=== PATIENT | female | born 1975 | race Caucasian/White ===

== ENCOUNTER → 2023-09-15 12:17 | Outpatient (REF) | payer BC, SELFPAY | LOC: WDC 12:17 | PROVIDERS: ATTENDING PHYSICIAN Obstetrics & Gynecology; FAMILY PHYSICIAN Physician Assistant Medical | DX: Z12.31 Encounter for screening mammogram for malignant neoplasm of breast (principal) | CPT/HCPCS: 77063; 77067 ==

== ENCOUNTER → 2023-12-29 07:18 | Outpatient (REF) | payer BC, SELFPAY | LOC: EMG 07:18 | PROVIDERS: ATTENDING PHYSICIAN Orthopaedic Surgery Hand Surgery; FAMILY PHYSICIAN Physician Assistant Medical | DX: G56.03 Carpal tunnel syndrome, bilateral upper limbs (principal); R20.0 Anesthesia of skin | CPT/HCPCS: 95886; 95911 ==

== ENCOUNTER → 2024-01-28 13:51 | Outpatient (REF) | payer BC, SELFPAY | LOC: RCS 13:51 | PROVIDERS: ATTENDING PHYSICIAN Internal Medicine Cardiovascular Disease; FAMILY PHYSICIAN Physician Assistant Medical | DX: R60.0 Localized edema (principal) | CPT/HCPCS: 93306 ==

== ENCOUNTER → 2024-04-15 11:11 | Outpatient (REF) | payer BC, SELFPAY | LOC: RAD 11:11 | PROVIDERS: ATTENDING PHYSICIAN Family Medicine | DX: M79.652 Pain in left thigh (principal) | CPT/HCPCS: 93971 ==

== ENCOUNTER 2024-08-30 14:14 | Day surgery (SDC) | payer BC, SELFPAY ==
[2024-08-30] VITALS (13 sets, daily range): BP systolic 118–134; BP diastolic 73–91; BMI 24.2
--- NOTE | 2024-08-30 07:34 | ED.GENMED ---
History of Present Illness
General
Chief Complaint: Abdominal Pain
Source: patient
Exam Limitations: none
Time Seen by Provider: 08/30/24 07:21
Nursing documentation reviewed up to this point in time: agreed with
History of Present Illness
History of Present Illness:
48 yo female with no significant past medical history presents for abdominal pain. She states the pain started in the right lower quadrant 2 nights ago, is crampy and achy, has been getting worse and is now 7/10 and radiating across her entire
lower abdomen. Last normal BM was 2 days ago, had a small constipated BM today. Denies UTI symptoms. Denies fever or chills. Feels nauseous but has not vomited.
Past History
Past History
ED Past Medical History: None
ED Past Surgical History: None
Social History
Tobacco: Non-smoker
Alcohol: None
Drug: None
Personal:
Living: with family
Employment: Employed ( [employer])
Family History
Family History: Other (Noncontributory)
Review of Systems
Review of Systems
Allergies reviewed?: Yes
All Other Systems: ROS reviewed and negative except as documented in HPI and ROS
Constitutional: Denies fever or chills
Respiratory: Denies trouble breathing
Cardiac: Denies chest pain
ABD/GI: Reports abdominal pain and nausea; Denies vomiting or diarrhea
: Denies dysuria, frequency or difficulty voiding
Musculoskeletal: Reports no symptoms
Skin: Reports no symptoms
Neurological: Reports no symptoms
Phy Exam
Physical Exam
Physical Exam:
GENERAL: Mild distress due to pain. A&Ox3.
CONSTITUTIONAL: Afebrile.
EYES: clear, conjunctivae normal
ENMT: moist mucus membranes, Pharynx nl
RESPIRATORY: Regular respirations, nonlabored, lungs clear.
CARDIOVASCULAR: Regular rate and rhythm, no murmurs, no rubs.
GI: Soft, tender across lower abdomen, worse in RLQ, normal BS
MUSCULOSKELETAL: Moves with ease. Well perfused.
SKIN: Warm, dry, pink
PSYCH: Normal mood and affect. Well kept, interactive and appropriate
NEUROLOGIC: Awake, alert and oriented. No focal neurological deficits
Course
Orders/Labs/Results
Orders:
Orders
08/30/24 07:33
CT Abd/pel W Iv And Oral Contr Urgent
Comment:
Reason For Exam: pain across lower abd
Iohexol [Omnipaque] See Protocol PO NOW STA
08/30/24 07:34
Ketorolac [Toradol] 15 mg IV NOW STA
Ondansetron Injectable [Zofran] 4 mg IV NOW STA
08/30/24 08:30
Complete Blood Count/With Diff Urgent
Comprehensive Metabolic Panel Urgent
Lipase Urgent
Urinalysis Reflex To Culture Urgent
Date Specimen was Collected: 08/30/24
Time Specimen was Collected: 08:08
Urine Microscopic Reflex Cult Urgent
Urine Culture Urgent
DOC Source: U
Specimen Description:
Obtained by: Random
Date Specimen was Collected: 08/30/24
Time Specimen was Collected: 08:08
08/30/24 11:57
SURGICAL CONSULT Urgent
Consulting Provider: Werner Colunga
Was physician already notified: Yes
Reason for consult: acute appendicitis
08/30/24 12:02
Acetaminophen [Tylenol] 650 mg PO Q4HPRN PRN
HYDROmorphone [Dilaudid] 0.5 mg IV Q4HPRN PRN
Piperacillin/Tazo 3.375 Gram [Zosyn] 3.375 gram in 50 ml IV NOW
08/30/24 12:28
Fentanyl Citrate/Pf [Sublimaze] 100 mcg .ROUTE .STK-MED ONE
Lidocaine HCl/Pf [Xylocaine-Mpf 1% Vial] 50 mg .ROUTE .STK-MED ONE
Midazolam HCl [Versed] 2 mg .ROUTE .STK-MED ONE
Propofol [Diprivan] 20 ml .ROUTE .STK-MED
Rocuronium [place] [Rocuronium] 50 mg .ROUTE .STK-MED ONE
08/30/24 12:29
HYDROmorphone [Dilaudid] 0.25 mg IV PACU-Q5MPRN PRN
HYDROmorphone [Dilaudid] 0.5 mg IV PACU-Q5MPRN PRN
Meperidine [Demerol] 12.5 mg IV PACU-Q5MPRN PRN
Ondansetron Injectable [Zofran] 4 mg IV PACU-ONCEPRN PRN
Prochlorperazine [Compazine] 5 mg IV PACU-ONCEPRN PRN
Notify MD As Directed
Notify physician if: for SDS patients with known or suspected sleep obstructive sleep apnea, monitor in the
PACU.
Notify MD for any apneic/desaturation episodes
O2 Therapy [RESP] Urgent
Titrate/Wean O2 to maintain O2 sat greater than (%): 92
Special Instructions: -Provide supplemental oxygen to achieve O2 sat of 92% or greater.
-After 15 min, may wean O2 and discontinue if patient is able to maintain O2 sat of 92%
or greater during recovery period.
If patient is a discharge home, without oxygen therapy, notify anestheiologist if
unable to maintain O2 SAT of 92% or greater on room air for MD clearance.
08/30/24 12:30
Normosol (Mult Electrolytes) [Normosol-R/Plasmalyte-A] 1,000 ml IV PER PROTOCOL
08/30/24 12:39
Bupivacaine 0.25%Pf/Epinephrin [Sensorcaine-Epi 0.25%-0.0005] 30 ml .ROUTE .STK-MED ONE
08/30/24 12:58
Ketamine 5 ml .ROUTE .STK-MED
08/30/24 13:13
Dexamethasone Sod Phosphate [Decadron] 20 mg .ROUTE .STK-MED ONE
Diphenhydramine [Benadryl] 50 mg .ROUTE .STK-MED ONE
Famotidine [Pepcid] 20 mg .ROUTE .STK-MED ONE
Ondansetron Injectable [Zofran] 4 mg .ROUTE .STK-MED ONE
08/30/24 13:31
OR Pathology Routine
Pre-Operative Diagnosis: ACUTE APPENDICITIS
Operative Procedure: LAPAROSCOPIC APPENDECTOMY
Surgeon: WERNER COLUNGA
Circulating Nurse: MIRNA GUILLEN
Specimen Type: APPENDIX
08/30/24 13:41
Sugammadex Sodium [[place]] 200 mg .ROUTE .STK-MED ONE
08/30/24 14:15
Ondansetron Injectable [Zofran] 4 mg IV PACU-ONCEPRN PRN
08/30/24 14:28
Admit Patient As Directed
Co-Sign Provider:
Level of Care: Post Proc/Surg Recovery
Assign to:: Medical/Surgical
Physician / Group: Kimberlyn / CONCEPCIÓN
Diagnosis: Acute appendicitis
Reason for Overnight Stay: Standard of Care
Code Status As Directed
Resuscitation Status: Full Code
Activity As Directed
Activity Level: Ambulate
Intake/ Output As Directed
Frequency: Per unit guidelines
Vital Signs As Directed
Frequency: Per unit guidelines
PRN Pain Medication Management As Directed
May give lesser potent ordered pain med per pt: Yes
preference::
Protocol:: Medication orders for pain may be administered in a
manner that supports deferring to patient preference
when the pt is:
- Requesting an ordered lesser potent pain medication.
Least to most potent pain medications are defined
as: acetaminophen < NSAID < tramadol < opioids
(morphine, oxycodone, hydromorphone).
- Requesting a lesser dose of the same medication IF
ORDERED.
- Requesting a less intrusive route of administration
if both routes are prescribed by the provider (PO <
IV).
08/30/24 14:30
Normosol (Mult Electrolytes) [Normosol-R/Plasmalyte-A] 1,000 ml IV 100 mls/hr
08/30/24 14:32
Pneumatic Compression Sleeves As Directed
Type: Thigh high
Rx Incentive Spirometry [RESP] Routine
Frequency: q1h while awake
# of times per hour: 10
DX Deep Vein Thrombosis Video Routine
08/30/24 14:33
Ketorolac [Toradol] 10 mg IV Q6HPRN PRN
Ondansetron Injectable [Zofran] 4 mg IV Q6HPRN PRN
Oxycodone [Roxicodone] 5 mg PO Q4HPRN PRN
08/30/24 Dinner
Regular
At Your Request: Full Participation
HYDROmorphone [Dilaudid] 0.25 mg .ROUTE .STK-MED ONE
08/30/24 20:00
Piperacillin/Tazo 3.375 Gram [Zosyn] 3.375 gram in 50 ml IV Q6H
08/31/24 18:00
Enoxaparin Sodium [Lovenox] 40 mg SC QPM
Abnormal Lab Results
08/30/24
08:30
WBC 17.2 H 10^3/uL
(4.8-10.8)
RBC 4.06 L 10^6/uL
(4.20-5.40)
MCH 33.0 H pg
(27.0-31.0)
Abs Immat Gran (auto) 0.1 H 10^3/uL
(0-0.05)
Absolute Neuts (auto) 15.4 H 10^3/uL
(1.4-6.5)
Absolute Lymphs (auto) 0.8 L 10^3/uL
(1.2-3.4)
Absolute Monos (auto) 1.0 H 10^3/uL
(0.1-0.6)
Neutrophils % 89.4 H %
(42.2-75.2)
Lymphocytes % 4.4 L %
(20.5-51.1)
Glucose 109 H mg/dl
(70-99)
Leukocyte Esterase Rfl 1+ A
(Negative)
08/30/24 08:30
08/30/24 08:30
Vital Signs
Initial and Last Documented VS:
Initial Vital Signs
Temp Pulse Resp BP Pulse Ox
98.9 F 90 26 119/84 99
08/30/24 06:47 08/30/24 06:47 08/30/24 06:47 08/30/24 06:47 08/30/24 06:47
Last Documented Vital Signs
Temp Pulse Resp BP Pulse Ox
98.9 F 73 15 125/73 93
08/30/24 15:20 08/30/24 15:15 08/30/24 15:15 08/30/24 15:15 08/30/24 15:20
MDM/Problems Addressed
Differential Diagnosis Includes:
appendicitis, Constipation, diverticulitis, colitis, ovarian cyst
MDM/Problems Addressed:
48 yo female with no significant past medical history presents for abdominal pain. She states the pain started in the right lower quadrant 2 nights ago, is crampy and achy, has been getting worse and is now 7/10 and radiating across her entire
lower abdomen. Last normal BM was 2 days ago, had a small constipated BM today. Denies UTI symptoms. Denies fever or chills. Feels nauseous but has not vomited.
Afebrile, appears mildly uncomfortable
9:00 a.m.
Pt states she is getting pain relief after Toradol
CBC: WBC 17.2
CMP: Normal
U/A neg
2:00 PM:
Text message received from radiology Dr. Horton stating there is acute appendicitis
General surgeon Dr. Gutiérrez notified and into evaluate patient
Pt admitted to surgery service
*Critical Care Note
Total Time (30-74mins, 75-104mins- exclusive of procedures): Not Applicable
ED Attending Note
-
Portions of this chart may have been created with voice recognition software.� Occasional wrong word or��sound alike� substitutions may have occurred due to the inherent limitations of voice recognition software.
Discharge Plan
Departure
Patient Disposition: Admit
Date of Disposition: 08/30/24
Time of Disposition: 11:57
Admit to: Med/Surg
Presentation/result/management discussed w/ accepting /: Kimberlyn
Condition: Fair
Discharge Problem:
Acute appendicitis
Interventions
Interventions:
*General Assessment Last Done: 08/30/24 08:39
*Neglect/Abuse Screening Last Done: 08/30/24 06:47
ED- Fall Risk Assessment Last Done: 08/30/24 12:39
*ED COVID-19 Vaccine History Last Done: 08/30/24 08:39
*Nursing Disposition Last Done: 08/30/24 12:39
VN-Dlvqza-Lxnovdkfhh Assessment Last Done: 08/30/24 08:43
Discharge Date and Time
Discharge Date/Time: 08/30/24 12:38
[2024-08-30] MEDS: OMNIPAQUE 50 ML PO (08:20)
[2024-08-30] MEDS: ZOFRAN 4 MG IV (08:35)
[2024-08-30] MEDS: TORADOL 15 MG IV (08:35)
[2024-08-30 08:50] LABS: % Basophils 0.2 % (0-2); % Eosinophils 0.1 % (0-6); % Immature Granulocytes 0.4 % (0-0.5); % Lymphocytes 4.4 % (20.5-51.1); % Monocytes 5.5 % (1.7-9.3); % Neutrophils 89.4 % (42.2-75.2); Absolute Immature Granulocytes 0.1 10^3/uL (0-0.05); Absolute Lymphocytes 0.8 10^3/uL (1.2-3.4); Absolute Neutrophils 15.4 10^3/uL (1.4-6.5); Hematocrit 37.9 % (37.0-47.0); Hemoglobin 13.4 g/dL (12.0-16.0); Mean Corp Hgb Conc. 35.4 g/dL (33.0-37.0); Mean Corpuscular Volume 93.3 fL (81.0-99.0); Mean Platelet Volume 9.1 fL (7.4-10.4); Nucleated Red Blood Cells % 0 %; Platelet Count 260 10^3/uL (130-400); Red Blood Cell Count 4.06 10^6/uL (4.20-5.40); Red Cell Dist. Width 12.7 % (11.5-14.5); White Blood Cell Count 17.2 10^3/uL (4.8-10.8)
[2024-08-30 08:52] LABS: Urine Albumin Negative (Neg - Trace); Urine Bilirubin Negative (Negative); Urine Character Clear (Clear); Urine Color Straw; Urine Glucose Negative (Negative); Urine Ketone Negative (Negative); Urine Leukocyte 1+ (Negative); Urine Nitrite Negative (Negative); Urine Occult Blood Negative (Negative); Urine Specific Gravity 1.015 (<1.030); Urine Urobilinogen Negative (Neg - 1+)
[2024-08-30 08:56] LABS: Urine Red Blood Cell 0-2 /HPF (0-2); Urine Squamous Cell 0-2 /LPF (Few); Urine White Cell 0-2 /HPF (0-5)
[2024-08-30 09:14] LABS: ALT (SGPT) 22 U/L (0-35); AST (SGOT) 26 U/L (14-36); Albumin 4.6 g/dl (3.5-5.0); Alkaline Phosphatase 51 U/L (38-126); Blood Urea Nitrogen 7 mg/dl (7-17); Calcium 9.4 mg/dl (8.4-10.2); Carbon Dioxide 28 mmol/L (22-30); Chloride 101 mmol/L (98-107); Estimated Creatinine Clearance 90 ml/min; Glucose 109 mg/dl (70-99); Lipase 80 U/L (23-300); Potassium 3.7 mmol/L (3.5-5.1); Sodium 138 mmol/L (135-145); Total Bilirubin 0.9 mg/dl (0.2-1.3); Total Protein 6.9 g/dl (6.3-8.2); eGFR > 60.00
--- NOTE | 2024-08-30 12:06 | PHANOTE ---
med rec note- patient stated she going though HRT
--- NOTE | 2024-08-30 12:16 | W.SUR.PREOP ---
Pre-Operative Surgical Note
-
I have examined this patient prior to the performance of the scheduled procedure.
The patient's condition is unchanged from the time of the current History and
Physical and the patient is able to undergo the scheduled procedure.
--- NOTE | 2024-08-30 12:22 | HPS.HSE ---
Family Physician
-
Family Physician: Deborah Jett
Chief Complaint
-
Abdominal pain
History of Present Illness
Patient is a 48 y F with a PMH of anxiety and migraines who presents with 48 hours of RLQ abdominal pain. Symptoms began on Thursday evening. Abrupt and acute onset. Slow progression of discomfort since that time prompting presentation to the ED.
Associated constipation. Associated nausea, but no episodes of vomiting. No fevers or chills. No chronic GI issues. No personal or family history of IBD or colon cancer.
Medical History
Past Medical History
Past Medical History: Reports Psychiatric (Anxiety) and Other (Migraines)
Past Surgical History: Reports None
Social History
Tobacco: Non-smoker
Alcohol: Occasional
Drug: None
Personal:
Living: With Family
Family History
Family History: Not pertinent
Allergies / Home Medications
Allergies reflects when Allergies were last updated in [employer]
Home Medications with original date entered in [employer]
Allergy/Medication List:
NKDA
Review of Systems
-
A 12 point ROS was completed and negative except as noted: Yes
Physical Exam
Vital Signs
Vital Signs
Temp Pulse Resp BP Pulse Ox
98.9 F 90 26 131/88 100
08/30/24 06:47 08/30/24 06:47 08/30/24 06:47 08/30/24 11:33 08/30/24 11:45
Physical Exam
General: Well Developed, Well Nourished and No Apparent Distress
HEENT: NormoCephalic and Anicteric
Respiratory: Non Labored Respirations
Cardiac: Regular Rhythm
GI: Soft, Non Distended, Tender (RLQ/suprapubic region) and Other (Nonperitoneal)
Skin: Warm and Dry
Neuro: Nonfocal/grossly intact
Laboratory Results
-
08/30/24 08:30
08/30/24 08:30
Laboratory Results
Total Bilirubin 0.9 mg/dl (0.2-1.3) 08/30/24 08:30
AST 26 U/L (14-36) 08/30/24 08:30
ALT 22 U/L (0-35) 08/30/24 08:30
Alkaline Phosphatase 51 U/L (38-126) 08/30/24 08:30
Lipase 80 U/L (23-300) 08/30/24 08:30
Data Reviewed
-
CT Scan: Image Personally Visualized and interpreted and Report Reviewed by me
Lab Data: Labs Reviewed by me
Impression/Plan
-
IMPRESSION:
Patient is a 48 yo F p/w acute appendicitis
The natural history and pathophysiology of appendicitis was discussed. CT scan imaging as a relates to her appendix was reviewed. Options for management including medical management with antibiotics versus surgical management with appendectomy
were considered and discussed. Pros and cons of both approaches was discussed. Specifically, we discussed failure of medical management of future episodes of appendicitis versus surgical risks. Patient would like to proceed with appendectomy.
Plan for a laparoscopic appendectomy. The procedure itself, as well as the risks, benefits, and alternatives was discussed. Specifically, we discussed the risks of bleeding, infection, injury to surrounding structures (bowel, bladder), staple line
leak, need for open procedure. Typical postprocedure recovery including pain management and the need for 2 weeks no heavy lifting or strenuous activities was discussed. All questions answered. Consent signed.
PLAN:
-- Laparoscopic appendectomy
-- Pain control: Tylenol, IV Dilaudid PRN
-- Abx: Zosyn
[2024-08-30] MEDS: ZOSYN 50 IV ×2 (12:31→20:16)
[2024-08-30] MEDS: NORMOSOL-R/PLASMALYTE-A 1000 IV (14:30)
--- NOTE | 2024-08-30 14:41 | W.IMMPOSTOP ---
Surgical Immed Post Op Note
-
Primary Surgeon: Kimberlyn
Assisting Surgeon: None
Pre-op Diagnosis: Acute appendicitis
Post-op Diagnosis: Acute appendicitis
Procedure Performed: Laparoscopic appendectomy
Anesthesia Type: General
Specimen / Cultures:
1. Appendix
Estimated Blood Loss: 3 cc
Complications: None
Operative Findings:
1. Acute severe inflammation, appendix curled and adherent to TI and cecum
2. Localized perforation and spillage drained and immediately controlled
3. Mesentery take with [employer], base with mendez load stapler
Plan:
-- Abx: Zosyn/Augmentin for 7 days post-op
[2024-08-30] MEDS: DILAUDID 0.25 MG IV (15:01)
[2024-08-30] MEDS: TORADOL 10 MG IV (17:25)
--- NOTE | 2024-08-30 18:12 | PTCARENOTE ---
patient presents to [facility] rm 224 at 1530. Alert, orientated x 3. IV Infusing without difficulty into left antecubital, placed on a pump at this time. Pt assisted to BR, voided a large amt. Lungs clear however pt have a non productive cough.
Encourage use of incentive spirometry and well as instructed on coughing and deep breathing. 4 small incisions noted on abdoman with no drainage noted. Abd nondistended and soft, bowel sounds noted in all 4 quadrants. Discussed advancement of
diet.
[2024-08-30] MEDS: ROXICODONE 5 MG PO (20:57)
[2024-08-31 00:14] VITALS: BP 92/52
[2024-08-31] MEDS: ROXICODONE 5 MG PO (02:12)
[2024-08-31] MEDS: ZOSYN 50 IV ×2 (02:12→08:29)
[2024-08-31 04:34] VITALS: BP 98/54
[2024-08-31 07:37] VITALS: BP 108/68
[2024-08-31 07:43] LABS: Hematocrit 35.5 % (37.0-47.0); Hemoglobin 12.1 g/dL (12.0-16.0); Mean Corp Hgb Conc. 34.1 g/dL (33.0-37.0); Mean Corpuscular Hgb 32.7 pg (27.0-31.0); Mean Corpuscular Volume 95.9 fL (81.0-99.0); Mean Platelet Volume 8.9 fL (7.4-10.4); Platelet Count 230 10^3/uL (130-400); Red Cell Dist. Width 12.9 % (11.5-14.5); White Blood Cell Count 16.4 10^3/uL (4.8-10.8)
[2024-08-31 08:24] LABS: Blood Urea Nitrogen 9 mg/dl (7-17); Calcium 8.7 mg/dl (8.4-10.2); Carbon Dioxide 29 mmol/L (22-30); Chloride 102 mmol/L (98-107); Estimated Creatinine Clearance 77 ml/min; Glucose 108 mg/dl (70-99); Potassium 4.1 mmol/L (3.5-5.1); Sodium 137 mmol/L (135-145); eGFR > 60.00
[2024-08-31] MEDS: TORADOL 10 MG IV (08:45)
--- NOTE | 2024-08-31 09:29 | W.PN.GS2 ---
Today's Communication / Plan
-
-- DC today
Assessment / Plan
-
Patient is a 48 yo F POD#1 s/p laparoscopic appendectomy
AVSS
Downtrending WBC
Recovering well. No post-operative concerns.
-- Regular diet
-- Pain control: Tylenol, Toradol, Oxycodone
-- HLIV
-- DVT: Lovenox
-- DC today
Subjective Data
-
Date of Service: August 31, 2024
No major complaints. Reports abdominal soreness at umbilicus and RLQ. No nausea or emesis. Passing flatus, no BM. No fevers. Voiding. Ambulating.
Objective Data
-
Intake and Output
08/30/24 08/31/24 09/01/24
06:59 06:59 06:59
Intake Total 1220 / 1220
Output Total 850 / 850
Balance 370 / 370
Intake:
Oral fluids 720 / 720
IV fluids (Total) 500 / 500
normosol 100 / 100
Output:
Urine, Voided 850 / 850
Other:
Number of approximated MODERATE 2
amounts of urine
Vital Signs
Temp Pulse Resp BP Pulse Ox
98.5 F 56 16 108/68 93
08/31/24 07:37 08/31/24 07:37 08/31/24 07:37 08/31/24 07:37 08/30/24 15:20
Lab Results
08/31/24 07:16
08/31/24 07:16
Calcium 8.7 mg/dl (8.4-10.2) 08/31/24 07:16
Total Bilirubin 0.9 mg/dl (0.2-1.3) 08/30/24 08:30
AST 26 U/L (14-36) 08/30/24 08:30
ALT 22 U/L (0-35) 08/30/24 08:30
Alkaline Phosphatase 51 U/L (38-126) 08/30/24 08:30
Total Protein 6.9 g/dl (6.3-8.2) 08/30/24 08:30
Albumin 4.6 g/dl (3.5-5.0) 08/30/24 08:30
Physical Exam
-
Gen: NAD
Abd: soft, minimal tenderness, ND, non-peritoneal, incisions c/d/i - no erythema, ecchymosis or drainage
Patient has a stroud catheter: No
Patient has a central line: No
--- NOTE | 2024-08-31 10:54 | PTCARENOTE ---
ready for discharge to home. here for discharge .instructions given . pt has good understanding of self care. aware of follow up with MD.
--- NOTE | 2024-08-31 12:24 | CM ---
Met with pt at bedside
Pt reports she lives with her and daughter in a 2 story home;2 steps to enter, 12 steps to 2nd fl
Independent, employed, drives
DME - none
SNF/HH - denies past hx
Has ride at discharge
PCP - Deborah Jett. [facility]
Pharm - [facility] in [place]
Plan - anticipate home no needs
== END 2024-08-31 11:12 | disposition home or self-care (01) ==
LOC: PACU 14:14
PROVIDERS: Registered Nurse; ATTENDING PHYSICIAN Surgery; EMERGENCY PHYSICIAN Emergency Medicine; FAMILY PHYSICIAN Physician Assistant Medical
PROC: 0DTJ4ZZ Resection of Appendix, Percutaneous Endoscopic Approach (ICD-10-PCS; 2024-08-30)
DX: K35.80 Unspecified acute appendicitis (principal)
CPT/HCPCS: 44970; 88304; 74177; 80048; 80053; 81003; 81015; 83690; 85025; 85027; 87086; 96365; 96375; 99285; C1776; Q9967

== ENCOUNTER → 2024-10-24 12:08 | Outpatient (REF) | payer BC, SELFPAY | LOC: WDC 12:08 | PROVIDERS: ATTENDING PHYSICIAN Obstetrics & Gynecology; FAMILY PHYSICIAN Physician Assistant Medical | DX: Z12.31 Encounter for screening mammogram for malignant neoplasm of breast (principal) | CPT/HCPCS: 77063; 77067 ==

== ENCOUNTER → 2024-12-12 15:38 | Outpatient (REF) | payer BC, SELFPAY | LOC: MRI 3T 15:38 | PROVIDERS: ATTENDING PHYSICIAN Orthopaedic Surgery; FAMILY PHYSICIAN Family Medicine | DX: M20.11 Hallux valgus (acquired), right foot (principal); M20.21 Hallux rigidus, right foot | CPT/HCPCS: 73718 ==

== ENCOUNTER → 2025-01-23 10:29 | Outpatient (REF) | payer BC, SELFPAY | LOC: RAD 10:29 | PROVIDERS: ATTENDING PHYSICIAN Physician Assistant Medical | DX: M54.50 Low back pain, unspecified (principal) | CPT/HCPCS: 72110 ==

== ENCOUNTER → 2025-03-22 13:41 | Outpatient (REF) | payer BC, SELFPAY | LOC: RCS 13:41 | PROVIDERS: ATTENDING PHYSICIAN Physician Assistant Medical | DX: R00.0 Tachycardia, unspecified (principal); R00.2 Palpitations | CPT/HCPCS: 93225; 93226 ==